=== PATIENT | male | born 1985 | race Caucasian/White ===

== ENCOUNTER 2018-09-07 18:25 | Emergency (ER) | payer OTHER ==
[2018-09-07] MEDS ORDERED: EPINEPHrine 0.1 MG/ML SYG ×2 (18:40→18:47)
== END 2018-09-07 22:18 | disposition expired ==
LOC: E/R 22:18
DX: I46.9 Cardiac arrest, cause unspecified (principal)
CPT/HCPCS: 92950; 99285-25